=== PATIENT | male | born 1965 | race Caucasian/White ===

== ENCOUNTER 2025-03-18 14:00 | Outpatient (AMB) | payer OTHER, SELFPAY ==
--- NOTE | 2025-03-18 14:31 | MHC.OFFVIS ---
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 hx of spinal fusion C5, C6, C7. 3rd and 4th digit of the right hand goes numb. he reports his fingers occasionally freeze up on him. 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 Reports feels like someone pushes a spike through his wrists and fan feel it up to his elbow. 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 hx of spinal fusion C5, C6, C7. Pain is primarily at the base of bilateral thumbs 3rd and 4th digit of the right hand goes numb. he reports his fingers occasionally freeze up on him. 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 Reports feels like someone pushes a spike through his wrists and fan feel it up to his elbow. [facility] Social History (Updated 03/18/25 @ 14:36 by KAVEH Donovan) Alcohol intake: current Alcohol intake frequency: 3 or more drinks per day Comment: says he goes some days without drinking Patient Tobacco Use Status: Current someday Tobacco user Review of Systems Const All systems reviewed & are unremarkable except as noted in HPI and below Physical Exam Vital Signs: BMI result Body Mass Index 22.2 Extrem Other: Patient is alert, oriented, and in no acute distress. Neuro: Diminished sensation of the tips of the middle and ring fingers of the right hand Normal sensation of the tips of all other digits hand at this time Vascular: Cap refill brisk Pain: Tenderness to palpation about the bilateral 1st CMC joints ROM: Patient is able to make closed fist and extend all digits of bilateral hands fully and without difficulty Skin: No lacerations or abrasions. General: No ecchymosis, erythema, or evidence of infection. Psych: Appears grossly normal Affect normal Attitude cooperative Office Procedures AMB Joint Injection/Aspiration Joint Injection/Aspiration Primary Site: left thumb Injected: 40 mg of, DepoMedrol, with 3 mL of, 1% plain lidocaine and in the joint Procedure: The patient tolerated the procedure well and there was some relief with the local anesthesia Coding - Small Joint Procedure code (CPT) selection complete Assessment & Plan Assessment & Plan (1) Arthritis of carpometacarpal (CMC) joint of both thumbs: Code(s): M18.0 - Bilateral primary osteoarthritis of first carpometacarpal joints Category: Medical (2) Numbness and tingling in right hand: Code(s): R20.0 - Anesthesia of skin; R20.2 - Paresthesia of skin Category: Medical Plan X-rays obtained in the office today and independently reviewed by me, Hugo Montelongo PA-C, demonstrate left severe and right moderate basal joint arthritis 1. Left basal joint arthritis Patient is educated about this condition Patient is educated about the typical treatment course The risks and benefits of a steroid injection including but not limited to risk of damage to blood vessels, nerve, tendon, infection, skin bleaching, persistent or worsening pain, and failure to improve symptoms were discussed with the patient and they wish to proceed with the steroid injection. Once consent was obtained the skin over the dorsum of the left basal joint was sterilely prepped. The joint was then injected with a combination of 1 mL of (40 mg/ml} Depo-Medrol and 1% plain Lidocaine. The patient appears to have tolerated the procedure well and with no complications. He had good early relief before leaving clinic today. He knows that they may not have another steroid injection into this joint for least 4 months. EMG and nerve conduction study is also ordered to assess the health of the nerves of the right upper extremity Follow-up after EMG and nerve conduction study Orders: Orders XR Hand Bilat min 3v Today M79.643 - Pain in unspecified hand Coding Level of Care Code New Pt Level 3 (53381) Diagnoses Arthritis of carpometacarpal (CMC) joint of both thumbs M18.0 Numbness and tingling in right hand R20.0; R20.2 CPT Codes Coding - - Small joint: - Small Joint ([id number])
[2025-03-18 14:32] VITALS: BMI 22.2
== END 2025-03-18 14:55 | disposition home or self-care (01) ==
LOC: HO.HOS 14:00
DX: M18.0 Bilateral primary osteoarthritis of first carpometacarpal joints (principal); R20.0 Anesthesia of skin; R20.2 Paresthesia of skin
CPT/HCPCS: 20600; 99203

== ENCOUNTER 2025-03-18 14:00 | Outpatient (REF) | payer OTHER, SELFPAY ==
--- NOTE | ~2025-03-18 | XR_ITS ---
CLINICAL HISTORY: M79.643 - Pain in unspecified hand 3 views right hand Comparison: None Findings: No fractures or dislocations. There is advanced degenerative narrowing of the triscaphe joint. There is moderate degenerative narrowing of the 1st CMC joint. Healed fracture of the 5th metacarpal is noted. No erosions. No radiopaque foreign body. Impression: Degenerative arthritis with no acute findings. 3 views left hand Comparison: None Findings: No fractures or dislocations. There is advanced degenerative narrowing of the 1st CMC joint. No erosions. No radiopaque foreign body. Impression: Degenerative narrowing of the 1st CMC joint. This document has been electronically signed by: Reese Burns MD on 03/25/2025 16:42:36
== END 2025-03-18 14:01 | disposition home or self-care (01) ==
LOC: HO.HOSX 14:00
DX: M18.0 Bilateral primary osteoarthritis of first carpometacarpal joints (principal); R20.0 Anesthesia of skin; R20.2 Paresthesia of skin
CPT/HCPCS: 20600; 73130; 99202; J1010; J2003

== ENCOUNTER → 2025-03-18 14:26 | Outpatient (BNV) | payer OTHER, SELFPAY | PROVIDERS: Visit Provider Radiology Diagnostic Radiology | DX: M18.0 Bilateral primary osteoarthritis of first carpometacarpal joints (principal) | CPT/HCPCS: 73130 ==

== ENCOUNTER 2025-04-26 14:24 | Outpatient (AMB) | payer OTHER, SELFPAY ==
--- NOTE | 2025-04-26 14:31 | A.OFFVIS_ITS ---
Intake Visit Reasons: Inj- Rt basal joint inj Intake Note: Silverio is a 60 year old right hand dominant male who presents today for a right basal joint injection. A left basal joint injection was given at his last visit on 03/18/25. Allergies No Known Allergies Allergy (Unverified 04/26/25 14:34) HPI HPI Inj- Rt basal joint inj: Details: Silverio is a 60 year old right hand dominant male who presents today for a right basal joint injection. A left basal joint injection was given at his last visit on 03/18/25. Patient states that he has gotten some relief from his previous injection, and would like to try injection on the right. [facility] Social History Alcohol intake: current Alcohol intake frequency: 3 or more drinks per day Comment: says he goes some days without drinking Patient Tobacco Use Status: Current someday Tobacco user Review of Systems Const All systems reviewed & are unremarkable except as noted in HPI and below Physical Exam Extrem Other: Patient is alert, oriented, and in no acute distress. Neuro: Diminished sensation of the tips of the middle and ring fingers of the right hand Normal sensation of the tips of all other digits hand at this time Vascular: Cap refill brisk Pain: Tenderness to palpation about the bilateral 1st CMC joints ROM: Patient is able to make closed fist and extend all digits of bilateral hands fully and without difficulty Skin: No lacerations or abrasions. General: No ecchymosis, erythema, or evidence of infection. Psych: Appears grossly normal Affect normal Attitude cooperative Office Procedures AMB Joint Injection/Aspiration Joint Injection/Aspiration Primary Site: right thumb Prep: site was prepped using aseptic technique, ethochloride spray was applied and injection warnings given Injected: 40 mg of, DepoMedrol, with 1 mL of and 1% plain lidocaine Procedure: The patient tolerated the procedure well and there was some relief with the local anesthesia Coding - Small Joint Procedure code (CPT) selection complete Results Reviewed Results Reviewed: X-rays obtained in the office on 03/25/2025 and independently reviewed by me, Hugo Montelongo PA-C, demonstrate significant basal joint arthritis of bilateral thumbs. Assessment & Plan Assessment & Plan (1) Arthritis of carpometacarpal (CMC) joint of both thumbs: Code(s): M18.0 - Bilateral primary osteoarthritis of first carpometacarpal joints Category: Medical (2) Numbness and tingling in right hand: Code(s): R20.0 - Anesthesia of skin; R20.2 - Paresthesia of skin Category: Medical Plan 1. Right basal joint arthritis Patient is educated about this condition Patient is educated about the typical treatment course The risks and benefits of a steroid injection including but not limited to risk of damage to blood vessels, nerve, tendon, infection, skin bleaching, persistent or worsening pain, and failure to improve symptoms were discussed with the patient and they wish to proceed with the steroid injection. Once consent was obtained the skin over the dorsum of the right basal joint was sterilely prepped. The joint was then injected with a combination of 1 mL of (40 mg/ml} Depo-Medrol and 1% plain Lidocaine. The patient appears to have tolerated the procedure well and with no complications. He had good early relief before leaving clinic today. He knows that they may not have another steroid injection into this joint for least 4 months. Follow-up as needed Coding Level of Care Code Est Pt Level 3 (67908) Diagnoses Arthritis of carpometacarpal (CMC) joint of both thumbs M18.0 Numbness and tingling in right hand R20.0; R20.2 CPT Codes Coding - - Small joint: 24474 - Small Joint ([id number])
== END 2025-04-26 14:51 | disposition home or self-care (01) ==
LOC: HO.HOS 14:25
DX: M18.0 Bilateral primary osteoarthritis of first carpometacarpal joints (principal); R20.0 Anesthesia of skin; R20.2 Paresthesia of skin
CPT/HCPCS: 20600; 99213

== ENCOUNTER → 2025-04-26 14:24 | Outpatient (BNVA) | payer OTHER, SELFPAY | DX: M18.0 Bilateral primary osteoarthritis of first carpometacarpal joints (principal); R20.0 Anesthesia of skin; R20.2 Paresthesia of skin | CPT/HCPCS: 20600; 99212; J1010; J2003 ==